=== PATIENT | male | born 1985 | race Hispanic/Latino ===

== ENCOUNTER 2017-01-25 02:35 | Emergency (ER) | payer MEDICAID, OTHER ==
[2017-01-25 02:38] VITALS: BMI 21.9
--- NOTE | 2017-01-25 03:18 | ED PDOC ---
Arrival/HPI - General Historian: Patient - History of Present Illness Time/Duration: > week Symptom Onset: Gradual Symptom Course: Worsening <Laurent Patel - Last Filed: 01/25/17 03:05> <Luisito Del Castillo Jr. - Last Filed: 01/25/17 18:58> <Dina West - Last Filed: 01/26/17 18:34> <Tomás Edgar - Last Filed: 01/27/17 01:57> - General Chief Complaint: Psychiatric Evaluation Time Seen by Provider: 01/25/17 02:42 - History of Present Illness Narrative History of Present Illness (Text): 01/25/17 03:06 Titus Huizar is a 31 year old male, with a history of bipolar disorder, presents to the emergency department via EMS/[facility] for medical clearance. Patient's mother called the police the patient was acting bizarrely and left the house. Per mother, he has been non-compliant with his medications for couple of weeks. Patient was found by police at [facility] and was brought to ed under restraints because he was very combative. Denies any somatic complaints. Denies any alcohol or drug use. (Laurent Patel) Past Medical History - Provider Review Nursing Documentation Reviewed: Yes - Tetanus Immunization Tetanus Immunization: Unknown - Pulmonary Hx Asthma: Yes - Psychiatric Hx Bipolar Disorder: Yes Hx Depression: No Hx Emotional Abuse: No Hx Physical Abuse: No Hx Substance Use: No - Past Surgical History Past Surgical History: No Previous - Anesthesia Hx Anesthesia: No - Suicidal Assessment Feels Threatened In Home Enviroment: No <Laurent Patel - Last Filed: 01/25/17 03:05> Family/Social History - Physician Review Nursing Documentation Reviewed: Yes Family/Social History: No Known Family HX Smoking Status: Unknown If Ever Smoked Hx Alcohol Use: Yes Hx Substance Use: No <Laurent Patel - Last Filed: 01/25/17 03:05> Allergies/Home Meds <Laurent Patel - Last Filed: 01/25/17 03:05> <Luisito Del Castillo Jr. - Last Filed: 01/25/17 18:58> <Dina West - Last Filed: 01/26/17 18:34> <Tomás Edgar - Last Filed: 01/27/17 01:57> Allergies/Adverse Reactions: Allergies No Known Allergies Allergy (Verified 01/25/17 02:42) Home Medications: Home Meds Medication Instructions Recorded Confirmed Risperidone 1 mg PO DAILY 01/27/17 01/27/17 Review of Systems - Physician Review All systems were reviewed & negative as marked: Yes - Review of Systems Constitutional: Normal. absent: Fatigue, Fevers Respiratory: Normal. absent: SOB, Cough Cardiovascular: Normal. absent: Chest Pain Gastrointestinal: Normal. absent: Abdominal Pain, Diarrhea, Nausea, Vomiting Neurological: Normal Psychiatric: Other (non compliant with medications and bizarre behavior ) <CharuaustenLaurent - Last Filed: 01/25/17 03:05> Physical Exam Vital Signs Reviewed: Yes Temperature: Afebrile Blood Pressure: Normal Pulse: Regular Respiratory Rate: Normal Appearance: Positive for: Well-Appearing, Non-Toxic, Comfortable Pain Distress: None Mental Status: Positive for: Alert and Oriented X 3 - Systems Exam Head: Present: Atraumatic, Normocephalic Pupils: Present: PERRL Conjunctiva: Present: Normal Respiratory/Chest: Present: Clear to Auscultation, Good Air Exchange. No: Respiratory Distress, Accessory Muscle Use Cardiovascular: Present: Regular Rate and Rhythm, Normal S1, S2. No: Murmurs Upper Extremity: Present: Normal Inspection. No: Cyanosis, Edema Lower Extremity: Present: Normal Inspection. No: Edema Neurological: Present: GCS=15, CN II-XII Intact, Speech Normal, Motor Func Grossly Intact, Normal Sensory Function Skin: Present: Warm, Dry, Normal Color. No: Rashes Psychiatric: Present: Alert, Oriented x 3 <CharuaustenLaurent - Filed: 01/25/17 03:05> Vital Signs Temp Pulse Resp BP Pulse Ox 01/27/17 01:06 98 H 16 98 01/27/17 00:29 98.3 F 95 H 19 111/80 96 01/26/17 19:52 98.2 F 98 H 18 137/96 H 98 01/26/17 17:15 98.1 F 81 18 138/100 H 98 01/26/17 12:14 98.4 F 80 18 157/86 H 98 01/26/17 09:00 84 16 145/93 H 95 01/26/17 07:00 116 H 18 133/91 H 96 01/26/17 05:00 67 18 136/80 97 01/26/17 04:00 98.5 F 69 16 138/70 01/26/17 03:00 89 18 142/90 01/26/17 02:00 78 18 150/88 96 01/26/17 00:00 85 16 140/80 96 01/25/17 22:00 78 18 148/80 01/25/17 20:00 98.7 F 80 16 138/79 95 01/25/17 18:28 97.9 F 80 18 153/93 H 100 01/25/17 13:42 94 H 16 146/93 H 100 01/25/17 11:28 83 16 139/89 100 01/25/17 07:56 92 H 18 132/86 100 01/25/17 07:36 97.9 F 97 H 16 149/92 H 99 01/25/17 06:35 84 16 124/76 99 01/25/17 04:35 82 16 122/74 100 01/25/17 02:35 98.2 F 92 H 18 128/74 99 Medical Decision Making <Laurent Patel - Last Filed: 01/25/17 03:05> - RAD Interpretation Supervisor Assembly Stock: Radiologist <Luisito Del Castillo Jr. - Last Filed: 01/25/17 18:58> <Dina West - Last Filed: 01/26/17 18:34> <Tomás Edgar - Last Filed: 01/27/17 01:57> ED Course and Treatment: 01/25/17 03:21 Impression: A 31 year old male who presents to the ed for medical clearance following non compliance with bipolar medications. Plan: -- EKG -- Labs -- Alcohol level -- Drug Screen -- CXR -- Urinalysis Progress Notes: 01/25/17 03:22 (Laurent Patel) 01/25/17 08:23 Pt s/o to me by overnight ED attending . Pt has been off of his psych meds for 2 weeks and with bizarre behavior. On exam, pt is currently calm; heart RRR ; Lungs CTA B/L. The pt has been "cleared" medically but now we are awaiting psychiatric disposition (from [facility] screener). 01/25/17 09:56 Patient is medically stable at this time for psychiatric admission/transfer. 01/25/17 12:48 Pt was seen by PES. PES is now requesting a screening by [facility]. PES states there are 2 patients ahead of him in the screening queue--then the screener will evaluate the pt. 01/25/17 17:40 Patient had tried to elope from the ED twice. Pt is refusing to take PO benzos. Pt tried eloping a third time--will place in 4 point restraints for now. (Luisito Del Castillo Jr.) 01/26/17 10:21 Patient endorsed to me from previous shift. He is awaiting transfer to [facility]. Patient is easily redirectable, currently cooperative. Denies pain or discomfort. No respiratory distress. Ambulatory. Awaiting re-evaluation by [facility]. 01/26/17 16:01 Patient became aggressive, agitated, yelling at security, walking throughout ED without gown and exposed. Was not able to be redirected despite multiple attempts made to ask patient to not walk into other patient's rooms and not yell and scream or behave in threatening matter. For patient and staff safety, ativan ordered. 01/26/17 19:[address] Edgar at 1900 to continue serial exams, disposition. Patient awake, ambulatory, no respiratory distress. (Dina West) 01/26/17 03:00 Pt. with multiple attempts to leave ED.Poorly cooperative.Agitated.Pt. was medically sedated initially ,further requiring partial restraints. 01/26/17 07:00 Pt. resting comfortably.Case endorsed to .Pending bed assignment / transfer to psych facility 01/26/17 22:00 Case endorsed to tn by Dr. West, pending bed assignment and transfer to psych facility. Pt resting comfortably. 01/26/17 23:32 Pt accepts on transfer at [facility] by Dr. Maurer. Pt stable for transfer. ( Tomás Edgar) - Lab Interpretations Lab Results: 01/25/17 05:01 01/25/17 05:01 Lab Results 01/25/17 05:25: Urine Color Yellow, Urine Appearance Sl cloudy, Urine pH 7.0, Ur Specific [place] 1.020, Urine Protein 30 H, Urine Glucose (UA) Negative, Urine Ketones Negative, Urine Blood Negative, Urine Nitrate Negative, Urine Bilirubin Negative, Urine Urobilinogen 1.0 H, Ur Leukocyte Esterase Negative, Urine RBC 0 - 2, Urine WBC 1 - 3, Ur Epithelial Cells 0 - 2, Urine Bacteria Mod , Urine Other Mucus, Urine Opiates Screen Negative, Urine Methadone Screen Negative, Ur Barbiturates Screen Negative, Ur Phencyclidine Scrn Negative, Ur Amphetamines Screen Negative, U Benzodiazepines Scrn Negative, U Oth Cocaine Metabols Negative, U Cannabinoids Screen Negative 01/25/17 05:01: WBC 9.5, RBC 4.72, Hgb 14.3, Hct 40.7 L, MCV 86.2, MCH 30.3, MCHC 35.1, RDW 12.8, Plt Count 323, MPV 9.7, Gran % 75.9 H, Lymph % (Auto) 14.0 L, [place] % (Auto) 9.2 H, Eos % (Auto) 0.7 L, Baso % (Auto) 0.2, Gran # 7.18 H, Lymph # 1.3, [place] # 0.9 H, Eos # 0.1, Baso # 0.02, Sodium 138, Potassium 3.5 L, Chloride 100, Carbon Dioxide 29, Anion Gap 13, BUN 8, Creatinine 0.8, Est GFR ( Amer) > 60, Est GFR (Non-Af Amer) > 60, Random Glucose 96, Calcium 9.3, Total Bilirubin 0.7, AST 71 H, ALT 92 H, Alkaline Phosphatase 91, Total Protein 7.3, Albumin 4.2, Globulin 3.1, Albumin/Globulin Ratio 1.4, Salicylates < 1 L, Acetaminophen < 10.0 L, Alcohol, Quantitative < 10 - RAD Interpretation Narrative RAD Interpretations (Text): Chest X-ray Brush Painter: Dr. Twyla Davis MD IMPRESSION: No active pulmonary disease (Luisito Del Castillo Jr.) Radiology Orders: 01/25/17 02:46 CHEST PORTABLE [RAD] Stat - Medication Orders Current Medication Orders: Discontinued Medications Lorazepam (Ativan) 1 mg IM ONCE ONE PRN Reason: Protocol Stop: 01/25/17 04:01 Last Admin: 01/25/17 04:11 Dose: 1 MG Behavioural Document 01/25/17 04:11 CESAR (Rec: 01/25/17 04:[address] [id number] Maintenance Maintenance Dose No Nonmedicinal Nonmedicinal Interventions Redirect Behavior Behavior for Medication: Anxiety Biting/Hitting/Throwing/ Kicking Dangers to self/others IM Administration Charges Document 01/25/17 04:11 CESAR (Rec: 01/25/17 04:12 CESAR [facility] [id number]) Injection Site MAR Injection Site Left Deltoid Charges for Administration # of IM Administrations 1 Lorazepam (Ativan) 2 mg PO ONCE ONE PRN Reason: Protocol Stop: 01/25/17 15:08 Last Admin: 01/25/17 15:32 Dose: Not Given Non-Admin Reason: Patient Refused Lorazepam (Ativan) 2 mg IM ONCE ONE PRN Reason: Protocol Stop: 01/25/17 17:43 Lorazepam (Ativan) 2 mg IM ONCE ONE Stop: 01/26/17 15:40 Last Admin: 01/26/17 15:46 Dose: 2 MG Behavioural Document 01/26/17 15:46 JOL (Rec: 01/26/17 15:46 JOL [id number]) Maintenance Maintenance Dose No Nonmedicinal Nonmedicinal Interventions Redirect Therapeutic Communication Activity Behavior Behavior for Medication: Continuous pacing/restlessness Dangers to self/others IM Administration Charges Document 01/26/17 15:46 JOL (Rec: 01/26/17 15:46 JOL [id number]) Charges for Administration # of IM Administrations 1 Lorazepam (Ativan) Confirm Administered Dose 2 mg .ROUTE .STK-MED ONE Stop: 01/26/17 15:41 Last Admin: 01/26/17 15:46 Dose: Ziprasidone (Geodon Inj) 10 mg IM STAT STA PRN Reason: Protocol Stop: 01/25/17 04:54 Last Admin: 01/25/17 06:41 Dose: Not Given Non-Admin Reason: Allergy Ziprasidone (Geodon Inj) Confirm Administered Dose 20 mg IM .STK-MED ONE Stop: 01/25/17 05:01 Ziprasidone (Geodon Inj) 20 mg IM STAT STA PRN Reason: Protocol Stop: 01/26/17 02:23 Last Admin: 01/26/17 03:00 Dose: 20 MG Behavioural Document 01/26/17 03:00 KKL (Rec: 01/26/17 03:50 KKL [id number]) Maintenance Maintenance Dose No Nonmedicinal Nonmedicinal Interventions Redirect Therapeutic Communication Activity Give food/fluids Comment Pt remains attempting to elope from ER after non medicinal methods used. Behavior Behavior for Medication: Continuous pacing/restlessness Hallucinations/paranoid/ delusions/extreme fear Behavior Comment Pt paranoid and attempting to elope from ER. IM Administration Charges Document 01/26/17 03:00 KKL (Rec: 01/26/17 03:[address] [id number]) Injection Site MAR Injection Site Left Deltoid Charges for Administration # of IM Administrations 1 - Scribe Statement The provider has reviewed the documentation as recorded by the Scribe <Laurent Patel - Last Filed: 01/25/17 03:05> <Luisito Del Castillo Jr. - Last Filed: 01/25/17 18:58> <Dina West - Last Filed: 01/26/17 18:34> <Tomás Edgar - Last Filed: 01/27/17 01:57> - Scribe Statement Ade Ojeda (Laurent Patel) Provider Attestation: All medical record entries made by the Scribe were at my direction and personally dictated by me. I have reviewed the chart and agree that the record accurately reflects my personal performance of the history, physical exam, medical decision making, and the department course for this patient. I have also personally directed, reviewed, and agree with the discharge instructions and disposition. (Laurent Patel) Disposition/Present on Arrival - Present on Arrival History of DVT/PE: No History of Uncontrolled Diabetes: No Urinary Catheter: No History of Decub. Ulcer: No History Surgical Site Infection Following: None <Laurent Patel - Last Filed: 01/25/17 03:05> - Present on Arrival Any Indicators Present on Arrival: No - Disposition Have Diagnosis and Disposition been Completed?: Yes Disposition Time: 18:59 <Luisito Del Castillo Jr. - Last Filed: 01/25/17 18:58> <Dina West - Last Filed: 01/26/17 18:34> - Present on Arrival Any Indicators Present on Arrival: No History of DVT/PE: No History of Uncontrolled Diabetes: No Urinary Catheter: No History of Decub. Ulcer: No History Surgical Site Infection Following: None - Disposition Have Diagnosis and Disposition been Completed?: Yes Disposition Time: 01:10 <Tomás Edgar - Last Filed: 01/27/17 01:57> - Disposition Diagnosis: Bipolar 1 disorder Disposition: Transfer [facility] Patient Problems: Current Active Problems Problem Status Diagnosed Psychosis Acute Condition: STABLE Physician Patient Turnover - . Patient Signed Over To: Tomás Edgar Handoff Comments: Pt s/o to Dr. Edgar at 7 PM on 01/25/2017. Sign out is to follow the recommendations made by [facility] behavioral health screener. <Luisito Del Castillo Jr. - Last Filed: 01/25/17 18:58> - . Handoff Comments: Case was endorsed to me from .Pt. was seen by [facility] screeners and HERRERA Lott.Pt. is still a hold in ED awaiting bed availability at [facility]. <Tomás Edgar - Last Filed: 01/27/17 01:57>
[2017-01-25 05:05] LABS: ADD MANUAL DIFF? NO
[2017-01-25 05:16] LABS: BASO # 0.02 K/mm3 (0.0-2.0); BASO % 0.2 % (0.0-3.0); EOS # 0.1 (0.0-0.7); EOS % 0.7 % (1.5-5.0); GRAN # 7.18 (1.4-6.5); GRAN % 75.9 % (50.0-68.0); HEMATOCRIT 40.7 % (42.0-52.0); LYMPH # 1.3 (1.2-3.4); MEAN CELL VOLUME 86.2 fL (80.0-105.0); MEAN CORPUSCULAR HEMOGLOBIN 30.3 pg (25.0-35.0); MEAN CORPUSCULAR HGB CONC 35.1 g/dl (31.0-37.0); MEAN PLATELET VOLUME 9.7 fl (7.0-11.0); MONO # 0.9 (0.1-0.6); MONO % 9.2 % (1.0-6.0); PLATELET COUNT 323 10^3/uL (120.0-450.0); RED CELL DISTRIBUTION WIDTH 12.8 % (11.5-14.5); WHITE BLOOD COUNT 9.5 10^3/ul (4.5-11.0)
[2017-01-25 05:22] LABS: ALB/GLOB RATIO 1.4 (1.1-1.8); ALKALINE PHOSPHATASE 91 U/L (38-133); ALT/SGPT 92 U/L (7-56); AST/SGOT 71 U/L (15-59); BILIRUBIN,TOTAL 0.7 mg/dL (0.2-1.3); BLOOD UREA NITROGEN 8 mg/dL (7-21); CALCIUM 9.3 mg/dL (8.4-10.5); CARBON DIOXIDE 29 mmol/L (21-33); CHLORIDE 100 mmol/L (95-110); GFR AFRICAN-AMERICAN > 60; GLUCOSE,RANDOM 96 mg/dL (70-110); POTASSIUM 3.5 mmol/L (3.6-5.0); SODIUM 138 mmol/L (132-148); TOTAL PROTEIN 7.3 g/dL (5.8-8.3)
[2017-01-25 05:43] LABS: URINE BILIRUBIN NEGATIVE (NEGATIVE); URINE BLOOD NEGATIVE (NEGATIVE); URINE GLUCOSE (UA) NEGATIVE (NEGATIVE); URINE KETONE NEGATIVE (NEGATIVE); URINE LEUKOCYTE ESTERASE NEGATIVE Leu/uL (NEGATIVE); URINE PROTEIN 30 mg/dL (<30 mg/dL)
[2017-01-25 06:11] LABS: URINE APPEARANCE SL CLOUDY (CLEAR); URINE COLOR YELLOW (YELLOW)
[2017-01-25 06:14] LABS: URINE BACTERIA MOD (NEG); URINE EPITHELIAL CELLS 0 - 2 /hpf (0-5); URINE RBC 0 - 2 /hpf (0-2)
--- NOTE | 2017-01-25 08:54 | RAD ---
HISTORY: pes COMPARISON: No prior. FINDINGS: LUNGS: The lungs are well inflated and clear. PLEURA: No significant pleural effusion identified, no pneumothorax apparent. CARDIOVASCULAR: Normal. OSSEOUS STRUCTURES: No significant abnormalities. VISUALIZED UPPER ABDOMEN: Normal. OTHER FINDINGS: None. IMPRESSION: No active pulmonary disease.
--- NOTE | 2017-01-25 12:02 | CARD ---
APPROVED REPORT EKG Measurement Heart [id number] <Conclusion> Sinus tachycardia Otherwise normal ECG
[2017-01-27 00:30] VITALS: BP 111/80; TEMP 98.3
[2017-01-27 01:06] VITALS: PULSE 98; RESP 16; O2SAT 98
== END 2017-01-27 01:06 | disposition short-term general hospital (02) ==
LOC: ED 02:35
DX: F31.9 Bipolar disorder, unspecified (principal)
CPT/HCPCS: 71010; 80053; 80320; 80324; 80329; 80345; 80346; 80349; 80353; 80358; 80361; 81001; 83992; 85025; 90791; 93005; 96372; 99285; J2060; J3486

== ENCOUNTER 2017-12-23 18:09 | Inpatient (IN) | payer MEDICAID ==
[2017-12-23 18:57] VITALS: BMI 34.4
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
[2017-12-23 20:04] LABS: BASO # 0.02 K/mm3 (0.0-2.0); BASO % 0.2 % (0.0-3.0); EOS % 0.1 % (1.5-5.0); GRAN # 10.62 (1.4-6.5); GRAN % 81.1 % (50.0-68.0); HEMOGLOBIN 16.4 g/dL (14.0-18.0); LYMPH % 7.7 % (22.0-35.0); MEAN CELL VOLUME 84.3 fl (80.0-105.0); MEAN CORPUSCULAR HEMOGLOBIN 29.5 pg (25.0-35.0); MEAN PLATELET VOLUME 10.2 fl (7.0-11.0); MONO # 1.4 (0.1-0.6); MONO % 10.9 % (1.0-6.0); RBC 5.55 10^6/uL (3.5-6.1); RED CELL DISTRIBUTION WIDTH 13.5 % (11.5-14.5); WHITE BLOOD COUNT 13.1 10^3/ul (4.5-11.0)
[2017-12-23 20:10] LABS: ACETAMINOPHEN < 10.0 ug/ml (10.0-20.0); SALICYLATE < 1 mg/dL (2.0-20.0)
[2017-12-23 20:14] LABS: ALB/GLOB RATIO 1.6 (1.1-1.8); ALBUMIN 5.1 g/dL (3.0-4.8); ALT/SGPT 78 U/L (7-56); AST/SGOT 41 U/L (17-59); BLOOD UREA NITROGEN 14 mg/dL (7-21); CALCIUM 10.7 mg/dL (8.4-10.5); GFR AFRICAN-AMERICAN > 60; GFR NON-AFRICAN AMERICAN > 60
[2017-12-23 20:46] LABS: URINE BILIRUBIN NEGATIVE (NEGATIVE); URINE BLOOD NEGATIVE (NEGATIVE); URINE GLUCOSE (UA) NEGATIVE (NEGATIVE); URINE LEUKOCYTE ESTERASE NEGATIVE Leu/uL (NEGATIVE); URINE PROTEIN TRACE mg/dL (<30 mg/dL); URINE UROBILINOGEN 0.2 E.U./dL (<1 E.U./dL)
[2017-12-23 20:49] LABS: URINE APPEARANCE CLEAR (CLEAR); URINE COLOR YELLOW (YELLOW)
[2017-12-23 20:52] LABS: URINE RBC 0 - 2 /hpf (0-2); URINE WBC 0 - 2 /hpf (0-6)
[2017-12-23 21:00] LABS: BARBITURATES, UR NEGATIVE (NEGATIVE); BENZODIAZEPINES, UR NEGATIVE (NEGATIVE); OPIATES, UR NEGATIVE (NEGATIVE); PHENCYCLIDINE, UR NEGATIVE (NEGATIVE)
--- NOTE | 2017-12-23 21:44 | RAD ---
HISTORY: psych COMPARISON: Comparison is made with 01/25/2017 FINDINGS: LUNGS: Suboptimal study due to poor inspiratory effort. No evidence of new infiltrate or consolidation in the lungs. PLEURA: No significant pleural effusion identified, no pneumothorax apparent. CARDIOVASCULAR: Normal. OSSEOUS STRUCTURES: No significant abnormalities. VISUALIZED UPPER ABDOMEN: Normal. OTHER FINDINGS: None. IMPRESSION: Expiratory portable chest x-ray. No evidence of acute pulmonary disease.
[2017-12-23] MEDS ORDERED: Alum-Mag Hydrox-Simethicone Susp (30 mL) PO PRN (23:13)
[2017-12-23] MEDS ORDERED: Magnesium Hydroxide Susp 30 ml UD PO PRN (23:14)
--- NOTE | 2017-12-24 02:01 | PCM.BM ---
<Cherie Sweet - Last Filed: 12/24/17 02:01> Treatment Plan Problems - Problems identified on initial assessmt Agitated, aggressive behavior Date Initiated: 12/23/17 Time Initiated: 23:25 Assessment reference: NA Status: Active High Risk for injury Date Initiated: 12/23/17 Time Initiated: 23:00 Assessment reference: NA Status: Active Altered sleep patetrns Date Initiated: 12/23/17 Time Initiated: 23:00 Assessment reference: NA Status: Active Altered Thought Process Date Initiated: 12/23/17 Time Initiated: 23:00 Assessment reference: NA Status: Active Inneffective Impulse Control Date Initiated: 12/23/17 Time Initiated: 23:00 Assessment reference: NA Status: Active medication non-adherence Date Initiated: 12/23/17 Time Initiated: 23:00 Assessment reference: NA Status: Active <Marlo Oglesby - Last Filed: 12/24/17 10:25> - Diagnosis (1) Bipolar disorder Status: Acute Interventions: Risperdal 2 mg po AMHS for paranoia and disorganization Cogentin 1 mg PO AMHS for EPS prophylaxis Klonopin 0.5 mg PO AMHS for mood control Gabapentin 300 mg PO BID, off label for mood control trazodone 50 mg PO HS prn, off-label for insomnia 12/24/17 10:25 (2) Psychosis Status: Acute Interventions: Risperdal 2 mg po AMHS for paranoia and disorganization Cogentin 1 mg PO AMHS for EPS prophylaxis 12/24/17 10:25 <Jacqueline Lawler - Last Filed: 12/26/17 15:59> Family Contact Family involvement: Famliy/SO not involved <Lara Kohler - Last Filed: 12/28/17 12:11>
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
--- NOTE | 2017-12-24 10:40 | CARD ---
APPROVED REPORT EKG Measurement Heart [id number] <Conclusion> Sinus tachycardia No change
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
[2017-12-26] MEDS ORDERED: DiphenhydrAMINE 50 mg/ml Inj IM PRN (14:45)
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
[2017-12-27 07:41] VITALS: RESP 20
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
[2017-12-28 08:06] LABS: BASO # 0.02 K/mm3 (0.0-2.0); BASO % 0.3 % (0.0-3.0); EOS # 0.2 (0.0-0.7); EOS % 3.5 % (1.5-5.0); GRAN # 4.25 (1.4-6.5); GRAN % 61.4 % (50.0-68.0); HEMOGLOBIN 15.6 g/dL (14.0-18.0); LYMPH # 1.9 (1.2-3.4); LYMPH % 26.8 % (22.0-35.0); MEAN CELL VOLUME 86.4 fl (80.0-105.0); MEAN CORPUSCULAR HEMOGLOBIN 29.5 pg (25.0-35.0); MEAN CORPUSCULAR HGB CONC 34.2 g/dl (31.0-37.0); MEAN PLATELET VOLUME 10.4 fl (7.0-11.0); MONO # 0.6 (0.1-0.6); RBC 5.28 10^6/uL (3.5-6.1); RED CELL DISTRIBUTION WIDTH 13.2 % (11.5-14.5); WHITE BLOOD COUNT 6.9 10^3/ul (4.5-11.0)
[2017-12-28 08:19] LABS: ALB/GLOB RATIO 1.5 (1.1-1.8); ALBUMIN 4.3 g/dL (3.0-4.8); ALT/SGPT 89 U/L (7-56); AST/SGOT 45 U/L (17-59); BLOOD UREA NITROGEN 9 mg/dL (7-21); CALCIUM 9.9 mg/dL (8.4-10.5); GFR AFRICAN-AMERICAN > 60; GFR NON-AFRICAN AMERICAN > 60
[2017-12-28 12:14] LABS: FREE T4 1.58 ng/dL (0.78-2.19)
--- NOTE | 2017-12-28 13:58 | CARD ---
APPROVED REPORT EKG Measurement Heart [id number] <Conclusion> Sinus tachycardia Otherwise normal ECG
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
--- NOTE | 2017-12-28 15:51 | CP.PCM.CON ---
<Rigo Handy Angel - Last Filed: 12/28/17 15:44> History of Present Illness - History of Present Illness History of Present Illness: Medicine consult note for Dr. Elda Handy DO, PGY - 1 Reason For Consult: Medical management of tachycardia HPI: 32 year old male with history of bipolar disorder, depression, and questionable history of hypertension not on medication, presents with 2 week history of depression. We were consulted for management of tachycardia as well as chronic medical problems. It was noted that upon admission, patient also was tachycardic, and that he had a WBC count of 13.1. However, at that time, patient showed no signs of infection and showed no ST/T changes on EKG as well as no arrhythmias on EKG. Patient's vitals besides the tachycardia were stable and patient had no complaints of shortness of breath, chest pain, fevers, chills , nausea, vomiting, or diarrhea. Patient's chest x ray was also negative for any acute process. At this time as well, patient denies any symptoms and states he is doing well. He denies seeing a content development manager in the past, denies having a past ECHO, a past catheterization, or a past stress test. Patient denies chest pain, symptoms of infection, and shortness of breath. Past Surgical History: Patient denies Past Medical History: Questionable Hypertension, Bipolar Disorder, Depression Allergies: Aripiprazole Social History: Patient denies alcohol, substance abuse; admits to tobacco use [facility]: [facility] [place] Family History: Non-contributory Medications: Reviewed, see MAR ROS: 12 point review of systems obtained, are negative except as per HPI Past Patient History - Infectious Disease Hx of Infectious Diseases: None - Tetanus Immunizations Tetanus Immunization: Unknown - Past Social History Smoking Status: Light Smoker < 10 Cigarettes Daily - CARDIAC Hx Cardiac Disorders: No Hx Hypertension: No - PULMONARY Hx Asthma: Yes - NEUROLOGICAL HX Cerebrovascular Accident: No Hx Seizures: No - HEMATOLOGICAL/ONCOLOGICAL Hx Cancer: No - INTEGUMENTARY Hx Dermatological Problems: No - MUSCULOSKELETAL/RHEUMATOLOGICAL Hx Musculoskeletal Disorders: No - GASTROINTESTINAL Hx Gastrointestinal Disorders: No - GENITOURINARY/GYNECOLOGICAL Hx Sexually Transmitted Disorders: No - PSYCHIATRIC Hx Psychophysiologic Disorder: No Hx Anxiety: No Hx Bipolar Disorder: Yes Hx Depression: No Hx Emotional Abuse: No Hx Physical Abuse: No Hx Schizophrenia: No Hx Sexual Abuse: No Hx Substance Use: No - SURGICAL HISTORY Hx Surgeries: No - ANESTHESIA Hx Anesthesia: No Hx Anesthesia Reactions: No Hx Malignant Hyperthermia: No Has any member of the family had a problem w/ anesthesia?: No Meds Allergies/Adverse Reactions: Allergies Allergy/AdvReac Type Severity Reaction Status Date / Time aripiprazole [From [facility]] Allergy RASH Verified 12/27/17 05:48 - Medications Medications: Current Medications Acetaminophen (Tylenol 325mg Tab) 650 mg PO Q4H PRN PRN Reason: Pain, Mild (1-3) Last Admin: 12/27/17 20:56 Dose: 650 mg Al Hydrox/Mg Hydrox/Simethicone (Maalox Plus 30 Ml) 30 ml PO DAILY PRN PRN Reason: Indigestion / Heartburn Atenolol (Tenormin) 25 mg PO DAILY [facility] Last Admin: 12/28/17 13:37 Dose: 25 mg Benztropine Mesylate (Cogentin) 1 mg PO AMHS [facility] Last Admin: 12/28/17 09:36 Dose: 1 mg Clonazepam (Klonopin) 1 mg PO BID [facility] PRN Reason: Protocol Diphenhydramine HCl (Benadryl) 50 mg IM Q6H PRN PRN Reason: Agitation Diphenhydramine HCl (Benadryl) 50 mg PO Q6 PRN PRN Reason: Prevention of Side Effects Last Admin: 12/27/17 23:52 Dose: 50 mg Gabapentin (Neurontin) 300 mg PO TID [facility] PRN Reason: Protocol Haloperidol (Haldol) 5 mg PO Q6H PRN; Protocol PRN Reason: Agitation Last Admin: 12/27/17 23:51 Dose: 5 mg Haloperidol Lactate (Haldol) 5 mg IM Q6H PRN; Protocol PRN Reason: Agitation Lorazepam (Ativan) 2 mg IM Q6H PRN; Protocol PRN Reason: Agitation Lorazepam (Ativan) 2 mg PO Q6H PRN; Protocol PRN Reason: Agitation Last Admin: 12/27/17 23:50 Dose: 2 mg Magnesium Hydroxide (Milk Of Magnesia) 30 ml PO DAILY PRN PRN Reason: Constipation Nicotine (Nicoderm Cq) 1 patch TD DAILY [facility] Last Admin: 12/28/17 08:21 Dose: 1 patch Risperidone (Risperdal Tab) 3 mg PO AMHS [facility] PRN Reason: Protocol Last Admin: 12/28/17 09:35 Dose: 3 mg Trazodone HCl (Desyrel) 50 mg PO HS PRN PRN Reason: Insomnia Last Admin: 12/25/17 22:09 Dose: 50 mg Zolpidem Tartrate (Ambien) 5 mg PO HS [facility] PRN Reason: Protocol Last Admin: 12/27/17 21:47 Dose: 5 mg Physical Exam - Constitutional Appears: Well - Head Exam Head Exam: ATRAUMATIC, NORMAL INSPECTION, NORMOCEPHALIC - Eye Exam Eye Exam: EOMI, Normal appearance, PERRL Pupil Exam: NORMAL ACCOMODATION, PERRL - ENT Exam ENT Exam: Mucous Membranes Moist, Normal Exam - Neck Exam Neck exam: Positive for: Normal Inspection - Respiratory Exam Respiratory Exam: Clear to Auscultation Bilateral, NORMAL BREATHING PATTERN - Cardiovascular Exam Cardiovascular Exam: REGULAR RHYTHM - GI/Abdominal Exam GI & Abdominal Exam: Normal Bowel Sounds, Soft. absent: Tenderness - Extremities Exam Extremities exam: Positive for: normal inspection - Back Exam Back exam: NORMAL INSPECTION - Neurological Exam Neurological exam: Alert, CN II-XII Intact, Normal Gait, Oriented x3, Reflexes Normal - Psychiatric Exam Psychiatric exam: Normal Affect, Normal Mood - Skin Skin Exam: Dry, Intact, Normal Color, Warm Results - Vital Signs Recent Vital Signs: Last Vital Signs Temp 98.6 F 12/27/17 07:40 Pulse 129 H 12/28/17 13:37 Resp 20 12/27/17 07:40 BP 122/82 12/28/17 13:37 Pulse Ox 97 12/23/17 22:09 - Labs Result Diagrams: 12/28/17 07:30 12/28/17 07:30 Labs: Laboratory Results - last 24 hr 12/28/17 12/28/17 12/28/17 07:30 07:30 07:30 WBC 6.9 D RBC 5.28 Hgb 15.6 Hct 45.6 MCV 86.4 MCH 29.5 MCHC 34.2 RDW 13.2 Plt Count 239 MPV 10.4 Gran % 61.4 Lymph % (Auto) 26.8 [place] % (Auto) 8.0 H Eos % (Auto) 3.5 Baso % (Auto) 0.3 Gran # 4.25 Lymph # (Auto) 1.9 [place] # (Auto) 0.6 Eos # (Auto) 0.2 Baso # (Auto) 0.02 Sodium 143 Potassium 4.1 Chloride 101 Carbon Dioxide 32 Anion Gap 14 BUN 9 Creatinine 1.0 Est GFR ( Amer) > 60 Est GFR (Non-Af Amer) > 60 Random Glucose 89 Calcium 9.9 Phosphorus Magnesium Total Bilirubin 0.8 AST 45 ALT 89 H Alkaline Phosphatase 105 Total Protein 7.3 Albumin 4.3 Globulin 2.9 Albumin/Globulin Ratio 1.5 Free T4 1.58 TSH 3rd Generation 2.39 12/28/17 07:30 WBC RBC Hgb Hct MCV MCH MCHC RDW Plt Count MPV Gran % Lymph % (Auto) [place] % (Auto) Eos % (Auto) Baso % (Auto) Gran # Lymph # (Auto) [place] # (Auto) Eos # (Auto) Baso # (Auto) Sodium Potassium Chloride Carbon Dioxide Anion Gap BUN Creatinine Est GFR ( Amer) Est GFR (Non-Af Amer) Random Glucose Calcium Phosphorus 4.2 Magnesium 2.5 H Total Bilirubin AST ALT Alkaline Phosphatase Total Protein Albumin Globulin Albumin/Globulin Ratio Free T4 TSH 3rd Generation Assessment & Plan - Assessment and Plan (Free Text) Assessment: Assessment 32 year old male with history of bipolar disorder, depression, and questionable history of hypertension not on medication; here for depression; we are consulted for tachycardia Plan: Tachycardia, possibly 2/2 withdrawals - EKG obtained today shows Sinus Tachycardia but no signs of ischemia - No other SIRS criteria, no signs of infection - Alcohol level and Tox screen negative on admission - Thyroid studies normal - Dr. Ribeiro on consult from Cardiology - ECHO ordered, pending Hypertension - Patient's blood pressure is elevated, meets criteria for Hypertension, but needs two separate appointments outpatient to confirm diagnosis of hypertension - Management per Cardiology Hypermagnesemia - Please hold all medications with magnesium - Will reassess tomorrow Tobacco Abuse - Advise cessation - No nicotine patch Bipolar Disorder - Per psychiatry Depression -Per psychiatry Dispo: Will follow this patient tomorrow as well <Felisha Schroeder - Last Filed: 12/28/17 17:10> Meds - Medications Medications: Current Medications Acetaminophen (Tylenol 325mg Tab) 650 mg PO Q4H PRN PRN Reason: Pain, Mild (1-3) Last Admin: 12/27/17 20:56 Dose: 650 mg Al Hydrox/Mg Hydrox/Simethicone (Maalox Plus 30 Ml) 30 ml PO DAILY PRN PRN Reason: Indigestion / Heartburn Atenolol (Tenormin) 25 mg PO DAILY [facility] Last Admin: 12/28/17 13:37 Dose: 25 mg Benztropine Mesylate (Cogentin) 1 mg PO AMHS [facility] Last Admin: 12/28/17 09:36 Dose: 1 mg Clonazepam (Klonopin) 1 mg PO BID [facility] PRN Reason: Protocol Diphenhydramine HCl (Benadryl) 50 mg IM Q6H PRN PRN Reason: Agitation Diphenhydramine HCl (Benadryl) 50 mg PO Q6 PRN PRN Reason: Prevention of Side Effects Last Admin: 12/27/17 23:52 Dose: 50 mg Gabapentin (Neurontin) 300 mg PO TID [facility] PRN Reason: Protocol Haloperidol (Haldol) 5 mg PO Q6H PRN; Protocol PRN Reason: Agitation Last Admin: 12/27/17 23:51 Dose: 5 mg Haloperidol Lactate (Haldol) 5 mg IM Q6H PRN; Protocol PRN Reason: Agitation Lorazepam (Ativan) 2 mg IM Q6H PRN; Protocol PRN Reason: Agitation Lorazepam (Ativan) 2 mg PO Q6H PRN; Protocol PRN Reason: Agitation Last Admin: 12/27/17 23:50 Dose: 2 mg Magnesium Hydroxide (Milk Of Magnesia) 30 ml PO DAILY PRN PRN Reason: Constipation Nicotine (Nicoderm Cq) 1 patch TD DAILY [facility] Last Admin: 12/28/17 08:21 Dose: 1 patch Risperidone (Risperdal Tab) 3 mg PO AMHS [facility] PRN Reason: Protocol Last Admin: 12/28/17 09:35 Dose: 3 mg Trazodone HCl (Desyrel) 50 mg PO HS PRN PRN Reason: Insomnia Last Admin: 12/25/17 22:09 Dose: 50 mg Zolpidem Tartrate (Ambien) 5 mg PO HS [facility] PRN Reason: Protocol Last Admin: 12/27/17 21:47 Dose: 5 mg Results - Vital Signs Recent Vital Signs: Last Vital Signs Temp 98.6 F 12/27/17 07:40 Pulse 129 H 12/28/17 13:37 Resp 20 12/27/17 07:40 BP 122/82 12/28/17 13:37 Pulse Ox 97 12/23/17 22:09 - Labs Result Diagrams: 12/28/17 07:30 12/28/17 07:30 Labs: Laboratory Results - last 24 hr 12/28/17 12/28/17 12/28/17 07:30 07:30 07:30 WBC 6.9 D RBC 5.28 Hgb 15.6 Hct 45.6 MCV 86.4 MCH 29.5 MCHC 34.2 RDW 13.2 Plt Count 239 MPV 10.4 Gran % 61.4 Lymph % (Auto) 26.8 [place] % (Auto) 8.0 H Eos % (Auto) 3.5 Baso % (Auto) 0.3 Gran # 4.25 Lymph # (Auto) 1.9 [place] # (Auto) 0.6 Eos # (Auto) 0.2 Baso # (Auto) 0.02 Sodium 143 Potassium 4.1 Chloride 101 Carbon Dioxide 32 Anion Gap 14 BUN 9 Creatinine 1.0 Est GFR ( Amer) > 60 Est GFR (Non-Af Amer) > 60 Random Glucose 89 Calcium 9.9 Phosphorus Magnesium Total Bilirubin 0.8 AST 45 ALT 89 H Alkaline Phosphatase 105 Total Protein 7.3 Albumin 4.3 Globulin 2.9 Albumin/Globulin Ratio 1.5 Free T4 1.58 TSH 3rd Generation 2.39 12/28/17 07:30 WBC RBC Hgb Hct MCV MCH MCHC RDW Plt Count MPV Gran % Lymph % (Auto) [place] % (Auto) Eos % (Auto) Baso % (Auto) Gran # Lymph # (Auto) [place] # (Auto) Eos # (Auto) Baso # (Auto) Sodium Potassium Chloride Carbon Dioxide Anion Gap BUN Creatinine Est GFR ( Amer) Est GFR (Non-Af Amer) Random Glucose Calcium Phosphorus 4.2 Magnesium 2.5 H Total Bilirubin AST ALT Alkaline Phosphatase Total Protein Albumin Globulin Albumin/Globulin Ratio Free T4 TSH 3rd Generation Attending/Attestation - Attestation I have personally seen and examined this patient.: Yes I have fully participated in the care of the patient.: Yes I have reviewed all pertinent clinical information: Yes Notes (Text): 12/28/17 17:05 Attending note; Patient seen and examined with resident in psychiatric floor. Patient is a 32-year-old male admitted with anxiety and depression. Medical consult was requested for tachycardia. No leukocytosis. Patient is afebrile and nontoxic. Tolerating diet. Denies any diarrhea. No cough or shortness of breath. No hypoxemia. Denies any chest pain. Ambulating fine. EKG showed sinus tachycardia. Alcohol level was negative. Urine drug screen is negative. UA is normal .Chest x-rays negative. TSH, free T4 normal. Patient was also evaluated by content development manager Dr. Ribeiro. Possible anxiety/withdrawal suspected. Patient is currently treated with Ativan. Monitor closely. Echocardiogram ordered. Started on atenolol. Patient is medically stable. Continue to monitor closely.
--- NOTE | 2017-12-29 00:38 | CON ---
DATE: 12/28/2017 LOCATION: Patient in room 519, bed 2. REASON FOR CONSULTATION: Sinus tachycardia, history of breathlessness. HISTORY OF PRESENT ILLNESS: The patient is a 32-year-old male, a known case of schizoaffective disorder, bipolar type, found to have sinus tachycardia. Patient denies any cardiac symptoms like chest pain, shortness of breath, palpitation, dizziness, or syncope. Denies any PND or swelling of legs. PAST MEDICAL HISTORY: Positive for multiple psychotic problems including schizoaffective disorder, bipolar type. PERSONAL HISTORY: Denies smoking. Drinks only socially. FAMILY HISTORY: Not significant. ALLERGIES: PATIENT IS ALLERGIC TO ARIPIPRAZOLE, IT GIVES HIM RASH. HOME MEDICATIONS: Including trazodone 100 mg p.o. at bedtime, risperidone 3 mg at bedtime, risperidone 2 mg p.o. daily, Klonopin 0.5 mg b.i.d., risperidone 1 mg p.o. daily, Neurontin 300 mg b.i.d., and Cogentin 1 mg b.i.d. REVIEW OF SYSTEMS: All other systems reviewed, positive mentioned in the history, otherwise negative. PHYSICAL EXAMINATION: VITAL SIGNS: Blood pressure 136/94; at times, patient also has blood pressure of 145/88; respirations 20; pulse at time of examination is 112, but previously the patient had heart rate of 125; temperature 98.6. HEENT: Head is normocephalic. Eyes: Pupils normal. Conjunctivae normal. Nose and throat: Normal. NECK: JVP is low. Carotids equal. THORAX: AP diameter normal. LUNGS: Clear. CARDIOVASCULAR: S1 and S2. ABDOMEN: Soft, nontender. No organomegaly. EXTREMITIES: No clubbing. No cyanosis. No edema. LABORATORY DATA: Shows WBC is 6.9, hemoglobin 15.6, hematocrit 45.6, and platelets 239. Sodium 143, potassium 4.1, BUN 9, creatinine 1.0, glucose 89, calcium 9.9. AST 45, ALT 89. Free T4 of 1.5, TSH 2.39. Magnesium 2.5, phosphorus 4.2. EKG shows sinus tachycardia. Chest x-ray is clear. DIAGNOSES: Sinus tachycardia and schizoaffective disorder, bipolar type. PLAN: We will add patient the atenolol 25 mg daily to control the tachycardia. We will do an echocardiogram to evaluate LV ejection fraction. We will monitor with you and follow with you. Patient is already on Cogentin 1 mg p.o. a.m. and at bedtime, trazodone 50 mg p.o. at bedtime p.r.n., Klonopin 0.5 mg t.i.d., magnesium 30 mL p.o. daily p.r.n., and gabapentin 300 mg b.i.d. We will do an echocardiogram and we will follow with you. Josemanuel Ribeiro MD
--- NOTE | 2017-12-29 11:35 | CP.PCM.PN ---
<OleRigo Ortiz - Last Filed: 12/29/17 11:32> Subjective - Date & Time of Evaluation Date of Evaluation: 12/29/17 Time of Evaluation: 09:00 - Subjective Subjective: Medicine progress note: Dr. Schroeder Patient seen and examined at bedside. Patient was more cooperative than yesterday, and states he feels less dazed than yesterday. He still does not have any complaints, however. Objective - Vital Signs/Intake and Output Vital Signs (last 24 hours): Temp Pulse Resp BP Pulse Ox 97.9 F 95 H 20 109/71 97 12/29/17 07:39 12/29/17 08:10 12/29/17 07:39 12/29/17 08:10 12/23/17 22:09 - Medications Medications: Current Medications Acetaminophen (Tylenol 325mg Tab) 650 mg PO Q4H PRN PRN Reason: Pain, Mild (1-3) Last Admin: 12/27/17 20:56 Dose: 650 mg Al Hydrox/Mg Hydrox/Simethicone (Maalox Plus 30 Ml) 30 ml PO DAILY PRN PRN Reason: Indigestion / Heartburn Atenolol (Tenormin) 25 mg PO DAILY [facility] Last Admin: 12/29/17 08:10 Dose: 25 mg Benztropine Mesylate (Cogentin) 1 mg PO AMHS [facility] Last Admin: 12/29/17 09:51 Dose: 1 mg Clonazepam (Klonopin) 1 mg PO BID [facility] PRN Reason: Protocol Last Admin: 12/29/17 08:12 Dose: 1 mg Diphenhydramine HCl (Benadryl) 50 mg IM Q6H PRN PRN Reason: Agitation Diphenhydramine HCl (Benadryl) 50 mg PO Q6 PRN PRN Reason: Prevention of Side Effects Last Admin: 12/27/17 23:52 Dose: 50 mg Gabapentin (Neurontin) 300 mg PO TID [facility] PRN Reason: Protocol Last Admin: 12/29/17 08:10 Dose: 300 mg Haloperidol (Haldol) 5 mg PO Q6H PRN; Protocol PRN Reason: Agitation Last Admin: 12/27/17 23:51 Dose: 5 mg Haloperidol Lactate (Haldol) 5 mg IM Q6H PRN; Protocol PRN Reason: Agitation Lorazepam (Ativan) 2 mg IM Q6H PRN; Protocol PRN Reason: Agitation Lorazepam (Ativan) 2 mg PO Q6H PRN; Protocol PRN Reason: Agitation Last Admin: 12/27/17 23:50 Dose: 2 mg Magnesium Hydroxide (Milk Of Magnesia) 30 ml PO DAILY PRN PRN Reason: Constipation Nicotine (Nicoderm Cq) 1 patch TD DAILY [facility] Last Admin: 12/29/17 08:13 Dose: Not Given Risperidone (Risperdal Tab) 3 mg PO AMHS [facility] PRN Reason: Protocol Last Admin: 12/29/17 09:51 Dose: 3 mg Trazodone HCl (Desyrel) 50 mg PO HS PRN PRN Reason: Insomnia Last Admin: 12/25/17 22:09 Dose: 50 mg Zolpidem Tartrate (Ambien) 5 mg PO HS [facility] PRN Reason: Protocol Last Admin: 12/28/17 21:50 Dose: 5 mg - Labs Labs: 12/28/17 07:30 12/28/17 07:30 - Constitutional Appears: Well - Head Exam Head Exam: ATRAUMATIC, NORMAL INSPECTION, NORMOCEPHALIC - Eye Exam Eye Exam: EOMI, Normal appearance, PERRL Pupil Exam: NORMAL ACCOMODATION, PERRL - ENT Exam ENT Exam: Mucous Membranes Moist, Normal Exam - Neck Exam Neck Exam: Full ROM, Normal Inspection. absent: Lymphadenopathy - Respiratory Exam Respiratory Exam: Clear to Ausculation Bilateral, NORMAL BREATHING PATTERN - Cardiovascular Exam Cardiovascular Exam: REGULAR RHYTHM, +S1, +S2. absent: Murmur - GI/Abdominal Exam GI & Abdominal Exam: Soft, Normal Bowel Sounds. absent: Tenderness - Extremities Exam Extremities Exam: Full ROM, Normal Capillary Refill, Normal Inspection. absent : Joint Swelling, Pedal Edema - Back Exam Back Exam: NORMAL INSPECTION - Neurological Exam Neurological Exam: Alert, Awake, CN II-XII Intact, Normal Gait, Oriented x3 - Psychiatric Exam Psychiatric exam: Normal Affect, Normal Mood - Skin Skin Exam: Dry, Intact, Normal Color, Warm Assessment and Plan - Assessment and Plan (Free Text) Assessment: Assessment 32 year old male with history of bipolar disorder, depression, and questionable history of hypertension not on medication; here for depression; we are consulted for tachycardia Plan: Tachycardia, possibly 2/2 withdrawals - EKG obtained today shows Sinus Tachycardia but no signs of ischemia - No other SIRS criteria, no signs of infection Procal negative - Alcohol level and Tox screen negative on admission - Thyroid studies normal - Dr. Ribeiro on consult from Cardiology - ECHO ordered, pending Hypertension - Patient's blood pressure is elevated, meets criteria for Hypertension, but needs two separate appointments outpatient to confirm diagnosis of hypertension - Management per Cardiology: Atenolol Hypermagnesemia - trending down - Please hold all medications with magnesium - Will reassess tomorrow Tobacco Abuse - Advise cessation - No nicotine patch Bipolar Disorder - Per psychiatry Depression -Per psychiatry Dispo: Awaiting ECHO results and recommendations from cardiology <Felisha Schroeder - Last Filed: 12/30/17 07:46> Objective - Vital Signs/Intake and Output Vital Signs (last 24 hours): Temp Pulse Resp BP Pulse Ox 98.1 F 101 H 20 131/83 97 12/30/17 07:15 12/30/17 07:15 12/30/17 07:15 12/30/17 07:15 12/23/17 22:09 - Medications Medications: Current Medications Acetaminophen (Tylenol 325mg Tab) 650 mg PO Q4H PRN PRN Reason: Pain, Mild (1-3) Last Admin: 12/27/17 20:56 Dose: 650 mg Al Hydrox/Mg Hydrox/Simethicone (Maalox Plus 30 Ml) 30 ml PO DAILY PRN PRN Reason: Indigestion / Heartburn Atenolol (Tenormin) 25 mg PO DAILY [facility] Last Admin: 12/29/17 08:10 Dose: 25 mg Benztropine Mesylate (Cogentin) 1 mg PO AMHS [facility] Last Admin: 12/29/17 21:02 Dose: 1 mg Clonazepam (Klonopin) 1 mg PO BID [facility] PRN Reason: Protocol Last Admin: 12/29/17 18:01 Dose: 1 mg Diphenhydramine HCl (Benadryl) 50 mg IM Q6H PRN PRN Reason: Agitation Diphenhydramine HCl (Benadryl) 50 mg PO Q6 PRN PRN Reason: Prevention of Side Effects Last Admin: 12/27/17 23:52 Dose: 50 mg Gabapentin (Neurontin) 300 mg PO TID [facility] PRN Reason: Protocol Last Admin: 03/22/18 18:01 Dose: 300 mg Haloperidol (Haldol) 5 mg PO Q6H PRN; Protocol PRN Reason: Agitation Last Admin: 12/27/17 23:51 Dose: 5 mg Haloperidol Lactate (Haldol) 5 mg IM Q6H PRN; Protocol PRN Reason: Agitation Lorazepam (Ativan) 2 mg IM Q6H PRN; Protocol PRN Reason: Agitation Lorazepam (Ativan) 2 mg PO Q6H PRN; Protocol PRN Reason: Agitation Last Admin: 12/27/17 23:50 Dose: 2 mg Magnesium Hydroxide (Milk Of Magnesia) 30 ml PO DAILY PRN PRN Reason: Constipation Nicotine (Nicoderm Cq) 1 patch TD DAILY [facility] Last Admin: 12/29/17 18:20 Dose: 1 patch Risperidone (Risperdal Tab) 3 mg PO AMHS [facility] PRN Reason: Protocol Last Admin: 12/29/17 21:02 Dose: 3 mg Trazodone HCl (Desyrel) 50 mg PO HS PRN PRN Reason: Insomnia Last Admin: 12/25/17 22:09 Dose: 50 mg Zolpidem Tartrate (Ambien) 5 mg PO HS [facility] PRN Reason: Protocol Last Admin: 12/29/17 21:02 Dose: 5 mg - Labs Labs: 12/28/17 07:30 12/28/17 07:30 Attending/Attestation - Attestation I have personally seen and examined this patient.: Yes I have fully participated in the care of the patient.: Yes I have reviewed all pertinent clinical information, including history, physical exam and plan: Yes Notes (Text): 12/30/17 07:44 Attending note; Patient seen and examined with resident in psychiatric floor. Patient is a 32-year-old male admitted with anxiety and depression. Medical consult was requested for tachycardia. No leukocytosis. Patient is afebrile and nontoxic. Patient is asymptomatic. EKG showed sinus tachycardia. Tachycardia is resolving after atenolol. Echo showed normal LV function with no significant valvular abnormality. Alcohol level was negative. Urine drug screen is negative. UA is normal .Chest x-rays negative. TSH, free T4 normal. Possible anxiety/withdrawal suspected. Patient is currently treated with Ativan. Monitor closely with cardiology. Please reconsult as needed.
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
--- NOTE | 2017-12-29 18:01 | CARD ---
APPROVED REPORT EXAM: Two-dimensional and M-mode echocardiogram with Doppler and color Doppler. INDICATION SINUS TACHYCARDIA 2D DIMENSIONS Left Atrium (2D)4.0 (1.6-4.0cm)IVSd0.9 (0.7-1.1cm) LVDd4.4 (3.9-5.9cm)PWd0.9 (0.7-1.1cm) LVDs2.8 (2.5-4.0cm)FS (%) 35.5 % LVEF (%)65.3 (>50%) M-Mode DIMENSIONS Aortic Root3.40 (2.2-3.7cm)Aortic Cusp Exc.2.10 (1.5-2.0cm) Aortic Valve AoV Peak Uclvgbsd176.0cm/Asha Peak GR.12mmHg Mitral Valve MV E Zqwjhmrk99.5cm/sMV A Ifhbmauk55.5cm/sE/A ratio1.2 TDI Lateral E' Peak V13.20cm/sMedial E' Peak V10.10cm/sE/Lateral E'7.0 E/Medial E'9.2 Pulmonary Valve PV Peak Qbbjdhor55.4cm/sPV Peak Grad.3mmHg Tricuspid Valve TR Peak [id number]/sRAP [id number] Peak Gr.15mmHg [id number] LEFT VENTRICLE The left ventricle is normal size. There is normal left ventricular wall thickness. The left ventricular function is normal.EF-65% There is normal LV segmental wall motion. The left ventricular diastolic function is normal. No left ventricle thrombus noted on this study. There is no ventricular septal defect visualized. There is no left ventricular aneurysm. There is no mass noted in the left ventricle. RIGHT VENTRICLE The right ventricle is normal size. There is normal right ventricular wall thickness. The right ventricular systolic function is normal. ATRIA The left atrium is borderline dilated. The right atrium size is normal. The interatrial septum is intact with no evidence for an atrial septal defect. AORTIC VALVE The aortic valve is thickened but opens well. No aortic regurgitation is present. There is no aortic valvular stenosis. There is no aortic valvular vegetation. MITRAL VALVE The mitral valve is thickened but opens well. Mitral regurgitation is trace to mild. There is no mitral valve stenosis. There is no evidence of mitral valve prolapse. TRICUSPID VALVE The tricuspid valve leaflets are thickened , but open well. There is trace tricuspid regurgitation.RVSP-25 mmof hg. There is no tricuspid valve stenosis. There is no tricuspid valve prolapse or vegetation. PULMONIC VALVE The pulmonary valve is normal in structure. There is no pulmonic valvular regurgitation. There is no pulmonic valvular stenosis. GREAT VESSELS The aortic root is normal in size. The ascending aorta is normal in size. The pulmonary artery is normal. The IVC is normal in size and collapses >50% with inspiration. PERICARDIAL EFFUSION There is no pleural effusion. <Conclusion> The left ventricle is normal size. There is normal left ventricular wall thickness. The left ventricular function is normal.EF-65% Mitral regurgitation is trace to mild. There is trace tricuspid regurgitation.RVSP-25 mmof hg. The IVC is normal in size and collapses >50% with inspiration.
--- NOTE | 2017-12-29 20:31 | PN ---
DATE: 12/29/2017 REASON FOR THE CONSULTATION: Sinus tachycardia, history of shortness of breath, admitted to psych floor, started on beta-mar, feels a lot better. OBJECTIVE: GENERAL: Not in apparent distress. VITAL SIGNS: Temperature afebrile, heart rate 95, blood pressure 109/71. HEENT: PERRLA. Extraocular muscles intact. NECK: Supple. No carotid bruit or thyromegaly. CHEST: Clear to auscultation. HEART: S1, S2 regular. ABDOMEN: Soft. EXTREMITIES: Clubbing and cyanosis are negative. LABORATORY DATA: Blood workup as follows: WBC 6.9, hemoglobin 15.6, hematocrit 45.6, platelet count 239. Chemistry shows sodium 142, potassium , chloride 101, carbon dioxide 32, anion gap of 14, BUN 9, creatinine 1.0. TSH 2.39. IMPRESSION: Sinus tachycardia, multiple psychiatric problems, schizoaffective disorder, bipolar. RECOMMENDATION: Continue atenolol 25 mg daily. If the blood pressure remains above 120, we can increase it to 25 b.i.d. Now the blood pressure is 109, so we will leave it as it is. We will get echo to assess LV function. TSH is in the normal limit. We will follow with you. Thank you, Dr. Romero, for providing us the opportunity in taking care of Titus Huizar. Josemanuel De La Cruz MD
[2017-12-30 07:56] LABS: BASO # 0.02 K/mm3 (0.0-2.0); BASO % 0.3 % (0.0-3.0); EOS # 0.3 (0.0-0.7); EOS % 4.5 % (1.5-5.0); GRAN # 3.93 (1.4-6.5); HEMOGLOBIN 15.4 g/dL (14.0-18.0); LYMPH # 2.1 (1.2-3.4); LYMPH % 30.2 % (22.0-35.0); MEAN CELL VOLUME 86.5 fl (80.0-105.0); MEAN CORPUSCULAR HEMOGLOBIN 29.7 pg (25.0-35.0); MEAN CORPUSCULAR HGB CONC 34.4 g/dl (31.0-37.0); MEAN PLATELET VOLUME 10.4 fl (7.0-11.0); MONO # 0.6 (0.1-0.6); RBC 5.18 10^6/uL (3.5-6.1); RED CELL DISTRIBUTION WIDTH 13.1 % (11.5-14.5); WHITE BLOOD COUNT 6.9 10^3/ul (4.5-11.0)
[2017-12-30 08:20] LABS: ALB/GLOB RATIO 1.4 (1.1-1.8); ALT/SGPT 68 U/L (7-56); AST/SGOT 35 U/L (17-59); BLOOD UREA NITROGEN 10 mg/dL (7-21); CALCIUM 9.8 mg/dL (8.4-10.5); GFR AFRICAN-AMERICAN > 60; GFR NON-AFRICAN AMERICAN > 60
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
--- NOTE | 2017-12-30 12:50 | PN ---
DATE: 12/30/2017 LOCATION: The patient in room 519, bed 2. REASON FOR CONSULTATION AND FOLLOWUP: Sinus tachycardia. SUBJECTIVE: The patient is sitting in chair without any chest pain, shortness of breath, palpitation. PHYSICAL EXAMINATION VITAL SIGNS: Blood pressure 131/83, respirations 20, pulse rate recorded at 101, but when I was examining, the patient's heart rate is 80, temperature 98.1. HEENT: Head is normocephalic. Eyes: Pupils normal. Conjunctivae normal. Nose and throat normal. NECK: JVP low. Carotids equal. THORAX: AP diameter normal. LUNGS: Clear. CARDIOVASCULAR: S1 and S2. ABDOMEN: Soft, no tenderness, no organomegaly. Bowel sounds normal. EXTREMITIES: No clubbing, no cyanosis. LABORATORY DATA: WBC 6.9, hemoglobin 15.4, hematocrit 44.8, platelet 233. Sodium 142, potassium 4.4, BUN 10, creatinine 0.9, AST 35, ALT 68, total protein 6.8, albumin 4.0. The patient had echo yesterday which showed normal size LV, normal left ventricular wall thickness, normal LV systolic function with ejection fraction of 65%, [id number] mitral regurg, trace tricuspid regurg, RVSP 25 mmHg. DIAGNOSES: Sinus tachycardia, multiple psychiatric problems, schizoaffective disorder, bipolar. PLAN: The patient will take atenolol 25 mg daily. We will continue present therapy and monitor the heart rate and blood pressure and we will follow with you. Josemanuel Ribeiro MD
[2017-12-31] MEDS: Pantoprazole 40 mg EC Tab PO SCH (07:07)
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
[2018-01-01] MEDS: Pantoprazole 40 mg EC Tab PO SCH (06:43)
[2018-01-01 06:54] VITALS: O2SAT 96
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
[2018-01-02] MEDS: Pantoprazole 40 mg EC Tab PO SCH (06:59)
--- NOTE | 2018-01-02 14:17 | PN ---
DATE: 01/02/2018 LOCATION: Patient in room 519, bed 2. REASON FOR CONSULTATION: Sinus tachycardia. SUBJECTIVE: Patient is walking around without any cardiac symptoms like chest pain, shortness of breath, or palpitation. PHYSICAL EXAMINATION: VITAL SIGNS: Blood pressure 115/76, respirations 20, pulse 86, temperature 97.7. HEENT: Head is normocephalic. Eyes: Pupils normal. Conjunctivae normal. Nose and throat: Normal. NECK: JVP is low. Carotids equal. THORAX: AP diameter normal. LUNGS: Clear. CARDIOVASCULAR: S1 and S2. ABDOMEN: Soft, nontender. No organomegaly. Bowel sounds normal. EXTREMITIES: No clubbing. No cyanosis. LABORATORY DATA: WBC 6.9, hemoglobin 15.4, hematocrit 44.8, platelets 233. Sodium 142, potassium 4.4, BUN 10, creatinine 0.9, glucose 85, calcium 9.8, AST 35, ALT 68, alkaline phosphate 103. Albumin and protein normal. TSH 2.39. DIAGNOSES: Sinus tachycardia, which is under control with atenolol 25 mg p.o. daily which is started. Psychiatric problems, schizoaffective disorder, bipolar type. Echocardiogram was done on 12/29/2017 shows normal left ventricular size, [id number] mitral regurgitation, trace tricuspid regurgitation. PLAN: Continue atenolol 25 mg p.o. daily. We will follow with you. Josemanuel Ribeiro MD
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
[2018-01-03] MEDS: Pantoprazole 40 mg EC Tab PO SCH (06:37)
[2018-01-03 07:03] VITALS: BP 123/82; PULSE 81; TEMP 98
--- NOTE | 2018-01-03 08:06 | PCM.BM ---
<Jacqueline Lawler Y - Last Filed: 01/03/18 08:05> Treatment Plan Problems - Problems identified on initial assessmt Agitated, aggressive behavior Date Initiated: 12/23/17 Time Initiated: 23:25 Assessment reference: NA Status: Active High Risk for injury Date Initiated: 12/23/17 Time Initiated: 23:00 Assessment reference: NA Status: Active Altered sleep patetrns Date Initiated: 12/23/17 Time Initiated: 23:00 Assessment reference: NA Status: Active Altered Thought Process Date Initiated: 12/23/17 Time Initiated: 23:00 Assessment reference: NA Status: Active Inneffective Impulse Control Date Initiated: 12/23/17 Time Initiated: 23:00 Assessment reference: NA Status: Active medication non-adherence Date Initiated: 12/23/17 Time Initiated: 23:00 Assessment reference: NA Status: Active - Milieu Protocol Milieu Narrative: group, milieu and supportive tx as tolerated Risperdal 3 mg po tid for paranoia and disorganization Cogentin 2 mg PO AMHS for EPS prophylaxis Klonopin 1 mg PO AMHS for mood control Gabapentin 300 mg PO tid, off label for mood control ambien 5mg po hs for insomnia nicotine 7 mg patch on 12/25/17 as patient complained of nicotine withdrawal ( though still couldn't quantify his use) Medical consult and cardiology consult appreciated pt submitted 48hr notice again, it is 4th time already, will 12/31/17 8am Family involvement Follow up on labs Will monitor closely Pt was educated about risk/benefits and alternatives of medications, coping strategies (safety plan, suicide prevention), relapse prevention, importance of follow up with psychiatrist and therapist, stay away from drugs/alcohol/smoking pt rescinded 48hr notice willing to get Risperdal consta will call for f/u tomorrow at [facility] Family Contact Family involvement: Family/SO is involved Family contact: Patient agrees to contact Family contact name: Stacy Magana Family contacted how many times per week?: 2 Discharge/Continuing Care - Treatment Team Participation Patient/Family/SO Statement: group, milieu and supportive tx as tolerated Risperdal 3 mg po tid for paranoia and disorganization Cogentin 2 mg PO AMHS for EPS prophylaxis Klonopin 1 mg PO AMHS for mood control Gabapentin 300 mg PO tid, off label for mood control ambien 5mg po hs for insomnia nicotine 7 mg patch on 12/25/17 as patient complained of nicotine withdrawal ( though still couldn't quantify his use) Medical consult and cardiology consult appreciated pt submitted 48hr notice again, it is 4th time already, will 12/31/17 8am Family involvement Follow up on labs Will monitor closely Pt was educated about risk/benefits and alternatives of medications, coping strategies (safety plan, suicide prevention), relapse prevention, importance of follow up with psychiatrist and therapist, stay away from drugs/alcohol/smoking pt rescinded 48hr notice willing to get Risperdal consta will call for f/u tomorrow at [facility] Treatment Plan Review - Problem Agitated, aggressive behavior Time Initiated: 23:25 High Risk for injury Time Initiated: 23:00 Altered sleep patetrns Time Initiated: 23:00 Altered Thought Process Time Initiated: 23:00 Inneffective Impulse Control Time Initiated: 23:00 medication non-adherence Time Initiated: 23:00 <Alesia Romero - Last Filed: 01/03/18 15:18> - Diagnosis (1) Schizophrenia Status: Acute Interventions: 01/03/18 15:13 noncompliance- pt willing to get risperdal consta, compliance with meds good paranoia- better poor impulse control - pt does not have agitation or aggression agitation- pt is more pleasant and attends groups poor insight into mental illness- -improved because of education pt has learning disability/ has no job- referrals for vocational program provided family involved IOP program recommended
--- NOTE | 2018-01-03 15:32 | PN ---
DATE: 01/03/2018 REASON FOR CONSULTATION: Sinus tachycardia, resolved. SUBJECTIVE: The patient is walking around without any cardiac symptoms. Denies any chest pain or shortness of breath. Denies any palpitation. PHYSICAL EXAMINATION: GENERAL: Not in any apparent distress, sitting in a group therapy and having the breakfast. VITAL SIGNS: Temperature afebrile, heart rate 81, blood pressure 122/82. HEENT: PERRLA. Extraocular muscles intact. NECK: Supple. No carotid bruit or thyromegaly. CHEST: Clear to auscultation. HEART: S1, S2 regular. ABDOMEN: Soft. EXTREMITIES: Clubbing and cyanosis are negative. LABORATORY DATA: Blood workup as follows: WBC , hemoglobin 15.4, hematocrit 44.8, platelet count 233. Chemistry shows sodium 142, potassium 4.4, chloride 105, carbon dioxide 27, anion gap of 14, BUN 10, creatinine 0.9. IMPRESSION: Sinus tachycardia, resolved, on beta mar, stable on 25 mg p.o. daily atenolol. The patient has history of schizoaffective disorder, bipolar. Echo dated 12/29/2017 shows normal left ventricular size, [id number] mitral regurgitation, mild tricuspid regurgitation. RECOMMENDATIONS: Continue atenolol 25 mg daily. We will sign off and glad to follow up p.r.n. Thank you Dr. Romero for providing us the opportunity in taking care of Titus Huizar. Josemanuel De La Cruz MD
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
== END 2018-01-03 16:14 | disposition home or self-care (01) | DRG 430 ==
LOC: ED 18:09 → ERH 21:43 → PSYC 22:28
PROVIDERS: ADMIT Psychiatry & Neurology Psychiatry; ATTEND Psychiatry & Neurology Psychiatry
PROC: GZ3ZZZZ Medication Management (ICD-10-PCS; principal; 2017-12-23)
DX: F20.9 Schizophrenia, unspecified (principal); E83.41 Hypermagnesemia; I10 Essential (primary) hypertension; R00.0 Tachycardia, unspecified; F81.9 Developmental disorder of scholastic skills, unspecified; F41.9 Anxiety disorder, unspecified; G47.00 Insomnia, unspecified; Z91.19 Patient's noncompliance with other medical treatment and regimen; Z91.14 Patient's other noncompliance with medication regimen